=== PATIENT | male | born 2000 | race Caucasian/White ===

== ENCOUNTER 2020-05-26 10:50 | Emergency (ER) | payer OTHER, SELFPAY ==
[2020-05-26 11:01] VITALS: BP 146/94; PULSE 95; RESP 16; TEMP 36.7; O2SAT 100
--- NOTE | 2020-05-26 11:55 | ED.HEATRA ---
HPI - Head Injury General Chief complaint: Head Injury Stated complaint: hit head at work, nauseated Time Seen by Provider: 05/26/20 11:37 Source: patient Mode of arrival: ambulatory Limitations: no limitations History of Present Illness HPI Narrative: This is a 19-year-old male that presents the emergency department for a head injury at work this morning. Reports he was bending over and stood up and hit his head on a machine. Reports he noted some bleeding to the area so washed out the wound. Reports some nausea. Was seen at urgent care and sent here for further evaluation. He is unsure of his last tetanus vaccine. Denies loss of consciousness, vision changes, vomiting, numbness, or weakness. Related Data Home Medications Medication Instructions Recorded Confirmed sertraline mg DAILY 05/26/20 Allergies Allergy/AdvReac Type Severity Reaction Status Date / Time No Known Allergies Allergy Verified 05/26/20 11:15 Review of Systems Review of Systems: Narrative: CONSTITUTIONAL: Denies fever EYES: Denies visual changes GASTROINTESTINAL: Denies vomiting MUSCULOSKELETAL: Reports myalgia. NEUROLOGIC: Denies headache, numbness, or weakness. All systems reviewed & are unremarkable except as noted in HPI and below PMFSH Past Medical History Medical History (Updated 05/26/20 @ 12:03 by Cecilia Aguirre PA-C) History of anxiety Social History Social History (Updated 05/26/20 @ 11:57 by Cecilia Aguirre PA-C) Substance use: never Gender identity (if verbalized by the patient): Male Exam Narrative: Exam Narrative: GENERAL: Well-appearing, well-nourished, and in no acute distress. HEAD: Normocephalic. Small hematoma to the left posterior scalp with overlying superficial 1 cm laceration, no active bleeding EYES: PERRLA and EOMI. ENT: Nares clear, no rhinorrhea or epistaxis. Mucous membranes moist. Oropharynx without tonsillar hypertrophy exudate or other lesions. Bilateral TMs pearly rubio non-bulging NECK: Supple. No adenopathy or masses. No midline cervical spine tenderness CHEST: Clear to auscultation. No respiratory distress. No wheezes rales or rhonchi HEART: Regular rate and rhythm. No murmur heard. Normal peripheral pulses. ABDOMEN: Soft, nontender, nondistended, normal active bowel sounds. EXTREMITIES: Normal range of motion. No edema. Strength equal in bilateral upper and lower extremities (5/5) SKIN: Warm, dry, no rash. NEURO: No focal deficits. Alert and oriented x3. Cranial nerves II through XII grossly intact. Normal gait. Normal [id number] PSYCH: Normal mood and affect Course Vital Signs Vital signs: Vital Signs Temperature 98.0 F 05/26/20 11:01 Pulse Rate 95 05/26/20 11:01 Respiratory Rate 16 05/26/20 11:01 Blood Pressure 146/94 H 05/26/20 11:01 Pulse Oximetry 100 05/26/20 11:01 Temperature 98.0 F 05/26/20 11:01 Pulse Rate 95 05/26/20 11:01 Respiratory Rate 16 05/26/20 11:01 Blood Pressure 146/94 H 05/26/20 11:01 Pulse Oximetry 100 05/26/20 11:01 MDM - Head Injury MDM Narrative Medical decision making narrative: Patient presents to the emergency department after head injury today with nausea. Patient is neurologically intact. Denied any vision changes, vomiting, or numbness. He did not lose consciousness. Had a superficial laceration to the scalp with no active bleeding. He was updated on tetanus. Patient was instructed on care of concussion. He is to follow-up with primary care doctor. He was given warnings to return to the ER Critical Care Time Critical Care Time Critical Care Time: No Discharge Plan Discharge Clinical Impression: Closed head injury Qualifiers: Encounter type: initial encounter Qualified Code(s): S09.90XA - Unspecified injury of head, initial encounter Patient Disposition: Home, Self-Care Condition: Stable Instructions: Concussion (ED) Additional Instructions: Return to the emergency department if you exp
[2020-05-26] MEDS: ONDANSETRON HCL ODT 4 MG TABLET PO (12:14)
[2020-05-26] MEDS: ACETAMINOPHEN 500 MG TABLET 1000 MG PO (12:14)
[2020-05-26] MEDS: TETANUS,DIPHTHERIA,AC PERTUSSIS ADULT (0.5 ML) BOOSTRIX IM (12:14)
== END 2020-05-26 12:14 | disposition home or self-care (01) ==
PROVIDERS: Emergency Provider Emergency Medicine; PCP Family Medicine
DX: S09.90XA Unspecified injury of head, initial encounter (principal); W22.8XXA Striking against or struck by other objects, initial encounter; Y99.0 Civilian activity done for income or pay; F41.9 Anxiety disorder, unspecified
CPT/HCPCS: 90471; 90715; 96372; 99283; A9270

== ENCOUNTER → 2020-10-23 16:33 | Outpatient (CLI) | payer OTHER, SELFPAY ==
--- NOTE | ~2020-10-23 | MR_ITS ---
EXAMINATION: MR brain/brain stem wo con DATE: 10/23/2020 17:49 INDICATION: Headache. TECHNIQUE: Magnetic resonance imaging (MRI) of the brain and brainstem was performed without intraven ous contrast. Sequences included sagittal and axial T1-weighted FSE, axial diffusion-weighted FS EPI, axial T2*-weighted GRE, axial T2-weighted FLAIR Propeller, and axial T2-weighted Propeller. Apparent diffusion coefficient (ADC) maps were created. COMPARISON: None. FINDINGS: There is no intracranial hemorrhage, acute infarction, or abnormal intracranial mass lesion . The ventricles are normal in size. The mastoid air cells are normal. There is a mucous retention cy st in left maxillary sinus. The orbits are normal. IMPRESSION: 1. Normal brain. Reviewed, dictated and finalized at location A. IMPRESSION: 1. Normal brain.
== END ==
PROVIDERS: PCP Family Medicine; Visit Provider Family Medicine
DX: G44.52 New daily persistent headache (NDPH) (principal)
CPT/HCPCS: 70551

== ENCOUNTER 2023-06-19 23:39 | Emergency (ER) | payer OTHER, SELFPAY ==
--- NOTE | ~2023-06-19 | CT_ITS ---
EXAMINATION: CT abdomen pelvis wo con DATE: 06/20/2023 00:59 INDICATION: Left flank pain. TECHNIQUE: Computed tomography (CT) of the abdomen and pelvis was performed without intravenous contr ast. Automated exposure control and iterative reconstruction technique were employed. The dose-length product was 648.44 mGy-cm. COMPARISON: None. FINDINGS: The visualized portions of the lung bases are clear without pneumonia or pleural effusion. The heart size is normal. No pericardial effusion. There is a small sliding hiatal hernia. The liver, gallbladder, spleen, pancreas, adrenal glands, and right kidney are normal. There is mild left hydro nephrosis and hydroureter. There is a 2 mm stone at left ureterovesicular junction. There are no dila sam loops of bowel. The appendix is normal. There are no pathologically enlarged lymph nodes. There i s no free intraperitoneal fluid. There is mild thoracic and lumbar spondylosis. IMPRESSION: 1. 2 mm stone at left ureterovesicular junction with mild left hydronephrosis and hydroureter. 2. Small sliding hiatal hernia. Reviewed, dictated and finalized at location A. T [employer] IMPRESSION: 1. 2 mm stone at left ureterovesicular junction with mild left hydronephrosis a nd hydroureter. 2. Small sliding hiatal hernia.
[2023-06-19 23:44] VITALS: BP 134/81; PULSE 87; RESP 18; TEMP 36.7; O2SAT 99
[2023-06-20 00:20] VITALS: BP 114/77; PULSE 74; RESP 18; O2SAT 97
[2023-06-20 00:29] LABS: Appearance Urine Clear (Clear); Bacteria Urine None Seen /hpf; Bilirubin Urine Negative (Negative); Blood Urine Negative (Negative); Color Urine Yellow (Yellow); Glucose Urine UA Negative (Negative); Ketones Urine Trace mg/dL (Negative); Leukocyte Esterase Ur Trace LEU/UL (Negative); Nitrate Urine Negative (Negative); Non Pathogenic Casts 0-2; Protein Urine Negative (Negative); RBC Urine 0-2 /hpf (0-2); Specific Grav Ur 1.024 (1.001-1.035); Squamous Epithelial Cell Urine None seen /hpf (Few); WBC Urine 0-5 /hpf
[2023-06-20 00:33] LABS: Add Urine Microscopic? YES
[2023-06-20] MEDS: HYDROmorphone HCL INJ (*CRX) 1 MG/ML SYR IV PUSH (00:44)
[2023-06-20] MEDS: ACETAMINOPHEN 500 MG TABLET 1000 MG PO (00:47)
[2023-06-20] MEDS: SODIUM CHLORIDE 0.9% IV 1,000 ML 999 ML IV CONT (00:48)
[2023-06-20] MEDS: ONDANSETRON INJ 4 MG/2 ML VIAL IV PUSH (00:48)
[2023-06-20 01:00] LABS: Alanine Aminotransferase 57 U/L (6-50); Albumin Level 4.6 g/dL (3.5-5.1); Alkaline Phosphatase 98 U/L (38-126); Anion Gap 11 mmol/L (8-16); Aspartate Amino Transferase 36 U/L (17-59); Bilirubin,Total 0.4 mg/dL (0.2-1.3); Blood Urea Nitrogen 22 mg/dL (9-20); Calcium 9.2 mg/dL (8.4-10.2); Carbon Dioxide 22 mmol/L (22-30); Chloride 106 mmol/L (98-107); Estimated CRCL calculation 132 ml/min; Estimated Glomerular Filt Rate > 60; Glucose 153 mg/dL (65-110); Lipase 42 U/L (23-300); Sodium 139 mmol/L (137-145)
[2023-06-20 01:14] LABS: Basophils Percent Auto 0.4 % (0.2-1.2); Eosinophils Absolute Auto 0.1 K/mm3 (0-0.3); Eosinophils Percent Auto 0.8 % (0-4.4); Hematocrit 45.3 % (42.0-52.0); Hemoglobin 14.7 g/dL (14.0-18.0); Immature Granulocyte Absolute 0.03 K/mm3 (0.00-0.031); Immature Granulocyte Percent A 0.3 % (0-0.5); Lymphocytes Absolute Auto 2.74 K/mm3 (0.9-3.2); Lymphocytes Percent Auto 28.6 % (18.3-44.2); Mean Corpuscular HGB Conc 32.5 g/dl (32-36); Mean Corpuscular Hemoglobin 28.1 pg (26-34); Mean Corpuscular Volume 86.5 fl (80-100); Mean Platelet Volume 10.8 fl (7.4-10.4); Monocytes Absolute Auto 0.6 K/mm3 (0.1-0.6); Monocytes Percent Auto 6.4 % (2.6-8.5); Neutrophils Absolute Auto 6.1 K/mm3 (1.3-6.7); Neutrophils Percent Auto 63.5 % (45.5-73.1); Platelet Count Result 244 k/mm3 (150-375); Red Blood Count 5.24 M/mm3 (4.6-6.20); Red Cell Distribution Width 12.6 % (11.5-14.5); White Blood Count 9.6 K/mm3 (4.5-10.0)
--- NOTE | 2023-06-20 01:16 | ED.GENADULT ---
HPI - General Adult General Chief complaint: Urogenital-Male Stated complaint: L flank pain Time Seen by Provider: 06/20/23 00:19 History of Present Illness HPI narrative: this is a 23-year-old male presenting with plan. Patient developed left-sided flank pain around 11:00 p.m. last night. Is a sharp pain. It is associated with burning when the patient tries to urinate. Is 8 out 10 intensity and constant. He has never had pain like this before no exacerbating alleviating factors. Patient has had 2 episodes of nausea and vomiting. No hematuria. No history of UTIs. No history of kidney stones. Related Data Allergies Allergy/AdvReac Type Severity Reaction Status Date / Time No Known Allergies Allergy Verified 12/06/22 15:35 PMFSH Past Medical History Medical History Generalized anxiety disorder History of anxiety Tension-type headache, unspecified, not intractable Family History Family History Father No problems noted. Mother No problems noted. Social History Social History Smoking status: Never smoker Substance use: never Lack of Transportation: No Lack of Food: Never True Current Housing: I Have Housing Concerned About Future Housing: No Difficulty Paying Gas/Electric Bills: No Difficulty Paying for Meds: No Currently Unemployed: No Difficulty w/ Childcare or Family Care: No Living arrangements: with family Occupation/Education: occupation Gender identity (if verbalized by the patient): Male Sexual Orientation (if Verbalized by the Patient): Straight or Heterosexual Spiritual care concerns: No Exam Narrative: APPEARANCE: Patient is laying prone on the bed rolling back and forth. Head: atraumatic. EYES: EOMI, NOSE: Atraumatic NECK: Trachea midline RESPIRATORY: No increased rate of breathing , clear to auscultation CARDIOVASCULAR: RRR, ABDOMINAL: Non-distended, soft nontender no guarding rebound, no CVA tenderness general exam: no testicular tenderness, normal lie MUSCULOSKELETAl: No obvious deformities NEURO: Alert. Moving 4/4 extremities SKIN:: Warm, dry. Normal color PSYCHIATRIC: Normal affect Course Vital Signs Vital signs: Vital Signs Temperature 98.0 F 12/31/23 23:44 Pulse Rate 87 06/19/23 23:44 Respiratory Rate 18 06/19/23 23:44 Blood Pressure 134/81 06/19/23 23:44 Pulse Oximetry 99 06/19/23 23:44 Temperature 98.0 F 06/19/23 23:44 Pulse Rate 69 06/20/23 01:53 Respiratory Rate 15 06/20/23 01:53 Blood Pressure 147/86 H 06/20/23 01:53 Pulse Oximetry 97 06/20/23 01:53 Medical Decision Making MDM Narrative Medical decision making narrative: -Course: 23-year-old male presenting with left-sided flank pain. CT showed a 0.2 cm stone at the UVJ. No infection of the urine. Pain controlled emergency department and discharged with supportive measures. Urology follow-up. -DDX includes but is not limited to: Kidney stone, UTI, muscle strain -Social determinants of health: works at [employer] lives with his mom -Hx from independent Sources: Father bedside -Independent interpretation of studies:laboratory studies normal, urine not indicative infection, CT showed 0.2 cm stone at the left UVJ. -Interventions: 1mg Dilaudid, L normal saline, 15 mg Toradol, 1000 mg Tylenol, 4mg zofran -Shared decision making / Disposition: discharged -RX Motrin, Tylenol, oxycodone, Zofran Vital Signs Vital Signs: Vital Signs Temperature 98.0 F 06/19/23 23:44 Pulse Rate 87 06/19/23 23:44 Respiratory Rate 18 06/19/23 23:44 Blood Pressure 134/81 06/19/23 23:44 Pulse Oximetry 99 06/19/23 23:44 Temperature 98.0 F 06/19/23 23:44 Pulse Rate 69 06/20/23 01:53 Respiratory Rate 15 06/20/23 01:53 Blood Pressure 147/86 H 06/20/23 01
[2023-06-20] MEDS: KETOROLAC 15 MG/ML VIAL (*BKC) IV PUSH (01:26)
[2023-06-20 01:53] VITALS: BP 147/86; PULSE 69; RESP 15; O2SAT 97
[2023-06-20 06:58] VITALS: BP 137/88; PULSE 92; RESP 15; O2SAT 97
== END 2023-06-20 06:59 | disposition home or self-care (01) ==
PROVIDERS: Physician Assistant; Emergency Provider Emergency Medicine; PCP Family Medicine
DX: N20.0 Calculus of kidney (principal); F41.9 Anxiety disorder, unspecified
CPT/HCPCS: 36415; 74176; 80053; 81001; 83690; 85025; 96361; 96374; 96375; 99284; A9270; J1170; J1885; J2405; J7030

== ENCOUNTER 2024-05-10 16:16 | Emergency (ER) | payer OTHER, SELFPAY ==
--- NOTE | 2024-05-10 16:21 | ED_ITS ---
HPI - Wound/Laceration General Chief Complaint: Wound/Laceration Stated Complaint: Head Cut Time Seen by Provider: 05/10/24 16:20 Source: patient Mode of arrival: ambulatory Limitations: no limitations History of Present Illness HPI narrative: Patient is a 23-year-old male who presents with laceration to head after hitting it on metal part of trailer last night at 3:00 a.m.. Reports last tetanus shot was almost 5 years ago. Denies any active bleeding, headache or vision changes. Related Data Allergies Allergy/AdvReac Type Severity Reaction Status Date / Time No Known Allergies Allergy Verified 05/10/24 16:32 Review of Systems Review of Systems: All systems reviewed & are unremarkable except as noted in HPI and below Constitutional: Constitutional: Denies body ache(s), Denies chills, Denies fatigue, Denies fever(s), Denies headache(s), Denies malaise and Denies weakness Eyes: Eyes: Denies blurry vision, Denies irritation and Denies loss of vision ENT: Denies otalgia, Denies headache(s), Denies nasal discharge, Denies sinus pain and Denies sore throat Cardiovascular: Cardiovascular: Denies chest pain, Denies irregular heart rhythm and Denies dyspnea Respiratory: Respiratory: Denies dyspnea Gastrointestinal: Gastrointestinal: Denies abdominal pain, Denies melena, Denies hematochezia, Denies diarrhea, Denies nausea and Denies vomiting Musculoskeletal: Musculoskeletal: Denies back pain, Denies myalgias and Denies arthralgias Integumentary/Breasts: Skin/Breast: Denies pruritus, Denies rash and Reports wounds Neurologic: Denies headache(s), Denies loss of vision and Denies weakness Psychiatric: Psychiatric: Reports no additional psychiatric complaints Endocrine: Endocrine: Denies fatigue PMFSH Past Medical History Medical History Generalized anxiety disorder History of anxiety History of kidney stones Tension-type headache, unspecified, not intractable Family History Family History Father No problems noted. Mother No problems noted. Social History Social History Smoking status: Never smoker Substance use: never Lack of Transportation: No Lack of Food: Never True Current Housing: I Have Housing Concerned About Future Housing: No Difficulty Paying Gas/Electric Bills: No Difficulty Paying for Meds: No Currently Unemployed: No Difficulty w/ Childcare or Family Care: No Living arrangements: with family Occupation/Education: occupation Gender identity (if verbalized by the patient): Male Sexual Orientation (if Verbalized by the Patient): Straight or Heterosexual Spiritual care concerns: No Comments At time of signature, agree with nursing past medical, surgical, social and family history. There is no relevant family history pertinent to the presenting complaint. Exam Const: General: cooperative, healthy appearing, comfortable, no acute distress and well nourished Nutritional Appearance: well nourished Orientation/consciousness: patient oriented x3 Limitations: no limitations HENMT: Head: normal to inspection, normocephalic, atraumatic and laceration right temporal linear, superficial and with sensation intact; not actively bleeding, without pulsatile bleeding, not involving subcutaneous tissue and not involving muscle tissue Head images: 1. 1 cm laceration. No active bleeding or drainage. Scabbed over Ears: hearing grossly normal bilaterally and external ears normal Face/Nose/Sinus: Normal external nose present, normal facial exam and face symmetric Face and sinus: normal facial exam and face symmetric Mouth: Yes lip normal Eyes: General: appearance normal, both eyes and all related structures Alignment and Position: alignment normal and position normal Periorbital: periorbital findings normal Eyelids: eyelids normal Pupils: Equal, round and reactive pupils present EOM: EOMs intact bilaterally Neck: Neck: normal visual inspection, full ROM and supple Chest: Chest palpation & inspection: normal inspection of the chest Resp: Effort & Inspection: normal respiratory effort and able to speak in complete sentences Auscultation: clear to auscultation bilaterally Cardio: Rate: regular rate Rhythm: regular rhythm Heart sounds: S1 normal heart sound present and S2 normal heart sound present GI: Inspection: normal to inspection Skin: General skin exam: normal color and no rashes or lesions noted Neuro: General: patient oriented x3 and moves all extremities Cranial nerves: Yes Equal, round and reactive pupils present Speech: normal speech Gait exam (Neuro): Normal gait present Extrem: General: normal to inspection, full ROM and no edema Psych: Appearance: grossly normal and well kempt Mental Status: mental sta tus grossly normal Speech and movement: Normal speech and movement present Affect: normal affect Attitude: cooperative Thought process: Normal thought process present Course Course Emergency Course: Patient is aware of diagnosis, understands and agrees to treatment plan. Anticipatory guidance given. Patient agrees to follow-up as directed and is aware of reasons to seek care at the emergency department. Portions of this record may have been created with voice recognition software Level of Care: Express Care Visit Vital Signs Vital signs: Vital Signs Temperature 36.3 C L 05/10/24 16:26 Pulse Rate 87 05/10/24 16:26 Respiratory Rate 18 05/10/24 16:26 Blood Pressure 133/90 05/10/24 16:26 Pulse Oximetry 99 05/10/24 16:26 Oxygen Delivery Room Air 05/10/24 16:26 Temperature 36.3 C L 05/10/24 16:26 Pulse Rate 87 05/10/24 16:26 Respiratory Rate 18 05/10/24 16:26 Blood Pressure 133/90 05/10/24 16:26 Pulse Oximetry 99 05/10/24 16:26 Oxygen Delivery Room Air 05/10/24 16:26 Reviewed MDM - Wound/Laceration MDM Narrative Medical decision making narrative: Updated tetanus today Exam findings show no acute concerns or changes; patient is non-toxic appearing and is in no distress.? Patient is appropriate for outpatient treatment and follow-up. Discharge instructions reviewed with patient, as well as provided in writing per nursing staff. The instructions also include specific and strict return/GO TO THE ER as well as f/u information. All questions have been answered, and the patient deny any further questions with discharge and discharge plan. Differential Diagnosis Differential diagnosis: Likely laceration and abrasion Medical Records Attestation: I reviewed the patient's medical records. Discharge Plan Discharge Clinical Impression: Laceration Patient Disposition: Home, Self-Care Condition: Stable Instructions: Diphtheria/Acellular Pertussis/Tetanus Booster Vaccine (By injection), Head Laceration (ED) Additional Instructions: your tetanus was updated today Apply Bactroban after warm soaks BID. Keep wound covered. Go to the emergency department if you have worsening redness, swelling or pus. Prescriptions: New mupirocin 2 % ointment 1 applic topical BID Qty: 15 0RF No Action amitriptyline 10 mg tablet 10 mg PO QHS Qty: 90 1RF Follow-up/Referrals: Speedy Bolanos MD [Primary Care Provider] - 3 Days Stand Alone Forms: Work/School Release IP Time of Disposition: 16:37
[2024-05-10 16:26] VITALS: BP 133/90; PULSE 87; RESP 18; TEMP 36.3; O2SAT 99
[2024-05-10] MEDS: TETANUS,DIPHTHERIA,AC PERTUSSIS ADULT (0.5 ML) BOOSTRIX IM (16:37)
== END 2024-05-10 16:47 | disposition home or self-care (01) ==
PROVIDERS: Emergency Provider Nurse Practitioner Family; PCP Family Medicine
DX: S01.01XA Laceration without foreign body of scalp, initial encounter (principal); W22.8XXA Striking against or struck by other objects, initial encounter; Z23 Encounter for immunization
CPT/HCPCS: 90471; 90715; 99213; G0463